=== PATIENT | female | born 1975 | race Caucasian/White ===

== ENCOUNTER 2016-07-05 10:25 | Inpatient (IN) | payer MEDICAID ==
[~2016-07-05] VITALS: Ht 165.1 cm; Wt 86.7 kg
[~2016-07-05 10:25] MED LIST: PRENAT PO
[2016-07-05] MEDS ORDERED: LACTATED RINGER'S 1,000 ML IV SCH (10:33)
[2016-07-05] MEDS ORDERED: CARBOPROST 250 MCG INJ IM PRN ×2 (11:00→16:30)
[2016-07-05] MEDS ORDERED: MISOPROSTOL 200 MCG TAB PR PRN ×2 (11:00→16:30)
[2016-07-05] MEDS ORDERED: OXYTOCIN 30 UNITS/LR 500 ML IV SCH (11:00)
[2016-07-05] MEDS ORDERED: METHYLERGONOVINE 0.2 MG INJ IM PRN ×2 (11:00→16:30)
[2016-07-05] MEDS ORDERED: OXYTOCIN 30 UNITS/LR 500 ML IV PRN ×2 (11:00→16:30)
[2016-07-05 11:02] VITALS: BP 117/61; PULSE 77; RESP 18; Ht 165.1 cm; Wt 86.7 kg
[2016-07-05] MEDS ORDERED: LACTATED RINGER'S 1,000 ML IV ONE (11:38)
[2016-07-05 11:49] LABS: ADD SCAN DIFF NO
[2016-07-05] MEDS ORDERED: FAMOTIDINE 20 MG INJ IV ONE (12:00)
[2016-07-05] MEDS ORDERED: CITRIC ACID/NA CITRATE 30 ML CUP PO ONE (12:00)
[2016-07-05 12:02] LABS: BASOPHILS % 0.2 % (0.0-2.0); EOSINOPHILS % 0.6 % (0.0-7.0); HEMATOCRIT 39.6 % (37.0-47.0); HEMOGLOBIN 13.1 g/dl (12.0-16.0); LYMPHOCYTES # 1.5 10^3/ul (0.8-2.9); LYMPHOCYTES % 23.5 % (15.0-51.0); MEAN CORPUSCULAR HGB CONC 33.1 g/dl (32.0-37.0); MEAN CORPUSCULAR VOLUME 96.8 fl (82.0-101.0); MEAN PLATELET VOLUME 11.7 fl (7.4-10.4); MONOCYTE # 0.4 10^3/ul (0.3-0.9); MONOCYTES % 5.5 % (0.0-11.0); NEUTROPHIL # 4.4 10^3/ul (1.6-7.5); NEUTROPHILS % 69.4 % (39.0-77.0); PLATELET COUNT 257 10^3/UL (140-415); RED BLOOD COUNT 4.09 10^6/ul (4.20-5.40); RED CELL DISTRIBUTION WIDTH 14.6 % (11.5-14.5); WHITE BLOOD COUNT 6.3 10^3/ul (4.8-10.8)
[2016-07-05 12:06] LABS: INR 0.9; PROTIME 12.1 Sec (12.2-14.2); PT RATIO 0.9
[2016-07-05 12:08] LABS: PARTIAL THROMBOPLASTIN TIME 27.3 Sec (25.0-35.0)
[2016-07-05] MEDS ORDERED: morphine SULFATE/PF (10 MG/10 ML) INJ ONE (12:39)
[2016-07-05] MEDS ORDERED: FENTAnyl 50 MCG/ML VIAL ONE (12:39)
[2016-07-05] MEDS ORDERED: PHENYLephrine (100 MCG/ML) 5ML SYG ONE (13:15)
--- NOTE | 2016-07-05 13:27 | PREOPHP ---
DATE OF ADMISSION: 07/05/2016 HISTORY OF PRESENT ILLNESS: A 40-year-old female 3, para 1-0-1-1, estimated delivery 2016 at 39+ weeks' gestation is admitted for repeat section and bilateral tubal ligation. PAST MEDICAL HISTORY: Unremarkable. PAST SURGICAL HISTORY: section, dilation and curettage. ALLERGIES: PENICILLIN. FAMILY HISTORY: Diabetes. PHYSICAL EXAMINATION: VITAL SIGNS: The patient is afebrile. Vital signs stable. HEAD, NECK AND CHEST: Within normal limits. ABDOMEN: Soft, nontender and gravid. EXTREMITIES: Within normal limits. NEUROLOGIC: Within normal limits. IMPRESSION: at 39 weeks and 3 days with previous section. The patient does not desire trial of labor after . The patient desires sterilization. PLAN: Repeat section and bilateral tubal ligation. Risks, benefits and alternatives of pr ocedure were explained to patient. Patient has been counseled about all of her contraceptive option s including all methods of sterilization. It was explained to patient is a chance of failure result ing in ectopic and/or intrauterine . After counseling, the patient said she unde rstood, and gave consent for the procedures. Dictated By: HA GARCIA/JOVANNY Conf#: [id number] DID#: [id number]
[2016-07-05] MEDS ORDERED: KETOROLAC 30 MG INJ IV PRN (13:30)
[2016-07-05] MEDS ORDERED: ONDANSETRON 4 MG INJ IV PRN (13:30)
[2016-07-05] MEDS ORDERED: HYDROmorphONE 1 MG/ML SYG IV PRN ×2 (13:30)
[2016-07-05] MEDS ORDERED: NALOXONE (0.4 MG/ML) INJ IV PRN (13:30)
[2016-07-05] MEDS ORDERED: ZOLPIDEM 5 MG TAB PO PRN (13:30)
[2016-07-05] MEDS ORDERED: DIPHENHYDRAMINE 50 MG INJ IV PRN (13:30)
[2016-07-05] MEDS ORDERED: ONDANSETRON 4 MG INJ ONE (14:15)
[2016-07-05] MEDS ORDERED: DEXAMETHASONE 4 MG/ML 1 ML INJ ONE (14:15)
--- NOTE | 2016-07-05 15:21 | OPR ---
DATE OF OPERATION: 07/05/2016 PREOPERATIVE DIAGNOSES: 1. at 39 weeks and 3 days with previous section. 2. Voluntary sterilization. POSTOPERATIVE DIAGNOSES: 1. at 39 weeks and 3 days with previous section. 2. Voluntary sterilization. OPERATION PERFORMED: Repeat low transverse section and bilateral tubal ligation, SURGEON: Ha Salazar MD SPRAGGER: Lisa Montiel MD ANESTHESIA: Spinal. ANESTHESIOLOGIST: Dr. Springer. PROCEDURE: The patient was taken to operating room and placed on the operating table. After succes sful spinal anesthesia was given, the patient was placed in supine position. The area was prepared and draped in the usual sterile fashion. Spinal anesthesia was tested and was satisfactory. Using a scalpel, Pfannenstiel incision was made about 2 fingerbreadths above the symphysis pubis. The inc ision was carried to the fascia. The fascia was incised and extended bilaterally with Herman scissors . Two Kochers were used to separate the fascia from the muscle. The muscle was dissected in midlin e down to the peritoneum. The peritoneum was secured with 2 Kellys and incised with Metzenbaum scis sors. Using a scalpel, a small transverse incision was made on the lower segment of the uterus. Up on entering the uterine cavity, bandage scissors were inserted to extend the incision bilaterally, c urved up. Baby was delivered from cephalic presentation. After suctioning clear of amniotic fluid, the baby was handed off to the red leader in attendance. Apgars were 9 and 9. The placenta was delivered without difficulty. The uterus was closed with #1 Monocryl continuous locked. After assuring hemostasis, both ovaries and tubes were inspected and all looked normal. The right f allopian tube was grasped with a Gus clamp. Using 0 plain suture ligature, a 5 cm segment of th e right fallopian tube was doubly ligated. Using Metzenbaum scissors, a portion of the right fallop chema tube above the ligated area was excised and sent to pathology. Same procedure was repeated on t he left fallopian tube. After assuring hemostasis, the peritoneal cavity was irrigated with warm saline. The peritoneum was closed with 2-0 Vicryl continuous. The fascia was closed with #1 Vicryl continuous in 2 segments. Subcutaneous tissue was reapproximated with 2-0 plain. The skin was closed with dimitry. ESTIMATED BLOOD LOSS: 700 mL. COMPLICATIONS: None. COUNTS: All counts were correct. Dictated By: HA GARCIA/JOVANNY Conf#: [id number] DID#: [id number]
[2016-07-05] MEDS: CEFAZOLIN 2 GM/50 ML (PMX) 50 ML IVPB SCH (15:44)
[2016-07-05] MEDS: LACTATED RINGER'S 1,000 ML IV SCH (16:15)
[2016-07-05] MEDS ORDERED: OXYCODONE/ACETAMINOPHEN (5/325) TAB PO PRN (16:30)
[2016-07-05] MEDS ORDERED: LANOLIN 7 GM TUBE TOP PRN (16:30)
[2016-07-05 17:35] VITALS: BP 125/66; PULSE 71; RESP 18
[2016-07-05] MEDS: OXYTOCIN 30 UNITS/LR 500 ML IV SCH ×3 (18:24→23:24)
[2016-07-05 19:50] VITALS: BP 121/62; PULSE 72; RESP 18
[2016-07-05] MEDS: SENNA/DOCUSATE NA (8.6MG/50MG) TAB PO SCH (21:00)
[2016-07-06] VITALS: BP 98/52; PULSE 72; RESP 18
[2016-07-06] MEDS: LACTATED RINGER'S 1,000 ML IV SCH (03:49)
[2016-07-06 04:30] VITALS: BP 113/55; PULSE 75; RESP 18
[2016-07-06 08:19] LABS: ADD SCAN DIFF NO
[2016-07-06 08:30] VITALS: BP 107/65; PULSE 83; RESP 14
[2016-07-06 08:41] LABS: BASOPHILS % 0.1 % (0.0-2.0); EOSINOPHILS % 0.2 % (0.0-7.0); HEMATOCRIT 31.2 % (37.0-47.0); HEMOGLOBIN 10.5 g/dl (12.0-16.0); LYMPHOCYTES # 2.3 10^3/ul (0.8-2.9); LYMPHOCYTES % 21.1 % (15.0-51.0); MEAN CORPUSCULAR HEMOGLOBIN 32.6 pg (29.0-33.0); MEAN CORPUSCULAR HGB CONC 33.7 g/dl (32.0-37.0); MEAN CORPUSCULAR VOLUME 96.9 fl (82.0-101.0); MONOCYTE # 0.8 10^3/ul (0.3-0.9); MONOCYTES % 7.4 % (0.0-11.0); NEUTROPHIL # 7.6 10^3/ul (1.6-7.5); NEUTROPHILS % 70.6 % (39.0-77.0); PLATELET COUNT 221 10^3/UL (140-415); RED BLOOD COUNT 3.22 10^6/ul (4.20-5.40); RED CELL DISTRIBUTION WIDTH 14.5 % (11.5-14.5); WHITE BLOOD COUNT 10.8 10^3/ul (4.8-10.8)
[2016-07-06] MEDS: SENNA/DOCUSATE NA (8.6MG/50MG) TAB PO SCH ×2 (09:14→20:44)
[2016-07-06 12:56] VITALS: BP 103/62; PULSE 79; RESP 18
[2016-07-06] MEDS: IBUPROFEN 800 MG TAB PO SCH ×2 (14:00→22:18)
[2016-07-06 19:45] VITALS: BP 104/51; PULSE 84; RESP 18
[2016-07-06] MEDS: OXYCODONE/ACETAMINOPHEN (5/325) TAB PO PRN (20:45)
--- NOTE | 2016-07-06 20:48 | PN ---
Date/Time of Note Date/Time of Note DATE: 07/06/16 TIME: 20:46 OB Subjective Subjective Subjective c/o incisional burning sensation passing small clots no flatus yet OB Objective Objective Objective vss afebrile abdomen soft wound dry lochia mod ext neg for tenderness HEENT: WNL Heart: Rhythm Normal Lungs: Clear, Equal Abdomen: WNL Extremities: Normal Reflexes: Normal OB Assessment/Plan Other Assessment: stable post rc/s #1 Other plan: as ordered MARLO SMITH MD July 06, 2016 20:48
[2016-07-07 04:20] VITALS: BP 98/54; PULSE 67; RESP 18
[2016-07-07] MEDS: IBUPROFEN 800 MG TAB PO SCH ×3 (05:41→22:04)
[2016-07-07 08:30] VITALS: BP 101/56; PULSE 67; RESP 18
[2016-07-07] MEDS: SENNA/DOCUSATE NA (8.6MG/50MG) TAB PO SCH ×2 (09:05→20:35)
[2016-07-07 16:36] VITALS: BP 122/59; PULSE 76; RESP 18
--- NOTE | 2016-07-07 19:36 | QN ---
Documentation Comment No complaint Afebrile VSS Abdomen soft POD #2 Stable Continue with present care. HA CHAVEZ MD July 07, 2016 19:36
[2016-07-07] MEDS: OXYCODONE/ACETAMINOPHEN (5/325) TAB PO PRN (20:34)
[2016-07-08 03:50] VITALS: BP 121/78; PULSE 78; RESP 18
[2016-07-08] MEDS: IBUPROFEN 800 MG TAB PO SCH ×3 (05:58→21:46)
[2016-07-08 08:45] VITALS: BP 116/64; PULSE 72; RESP 17
[2016-07-08] MEDS: SENNA/DOCUSATE NA (8.6MG/50MG) TAB PO SCH ×2 (09:00→21:46)
[2016-07-08] MEDS ORDERED: DIPHTH/TET/ACEL PERTUSS (ADULT) 0.5 ML VIAL IM* ONE (09:00)
--- NOTE | 2016-07-08 15:03 | QN ---
Documentation Comment No complaint Afebrile VSS Abdomen soft POD #3 Stable Continue with present care. HA CHAVEZ MD July 08, 2016 15:03
[2016-07-08 16:15] VITALS: BP 101/55; PULSE 83; RESP 16
[2016-07-08 20:25] VITALS: BP 122/60; PULSE 83; RESP 17
[2016-07-09 04:00] VITALS: BP 113/57; PULSE 74; RESP 18
[2016-07-09] MEDS: IBUPROFEN 800 MG TAB PO SCH ×2 (05:52→14:32)
[2016-07-09 08:00] VITALS: BP 138/81; PULSE 75; RESP 18
[2016-07-09] MEDS: SENNA/DOCUSATE NA (8.6MG/50MG) TAB PO SCH (08:48)
[2016-07-09 16:00] VITALS: BP 127/77; PULSE 80; RESP 18
--- NOTE | 2016-07-09 18:06 | DS ---
DATE OF ADMISSION: 07/05/2016 DATE OF DISCHARGE: 07/09/2016 ADMITTING DIAGNOSIS: at term with previous section. HISTORY: A 40-year-old female 3, para 1-0-1-1 at time of admission, para 2-0-1-2 at time of discharge, with term was admitted for repeat section. Also, patient desires russ ateral tubal ligation. On 07/05/2016, after obtaining informed consent, the patient underwent a rep eat low transverse section and bilateral tubal ligation. The patient's operation was uncom plicated. Postoperatively, the patient was given clear liquid diet, which was advanced to regular d iet, which she tolerated well. The patient discharged on postop day #4 after having had adequate bl adder and bowel function. CONDITION ON DISCHARGE: Stable. DIET: Regular. ACTIVITIES: Pelvic rest and no strenuous activities. MEDICATIONS: 1. Motrin as needed for pain. 2. Continue with vitamins, ferrous sulfate. Follow up in clinic in 1 week. FINAL DIAGNOSES: 1. Term , delivered by section. 2. Previous section. 3. Voluntary sterilization. 4. Mother with single liveborn. Dictated By: HA GARCIA/JOVANNY Conf#: [id number] DID#: [id number]
== END 2016-07-09 17:00 | disposition home or self-care (01) | DRG 766 ==
LOC: L-D 10:25 → PP1 17:38
PROVIDERS: ADMIT Obstetrics & Gynecology; ATTEND Obstetrics & Gynecology
PROC: 0UL70ZZ Occlusion of Bilateral Fallopian Tubes, Open Approach (ICD-10-PCS; 2016-07-05)
PROC: 10D00Z1 Extraction of Products of Conception, Low, Open Approach (ICD-10-PCS; principal; 2016-07-05 12:30)
PROC: 3E00X4Z Introduction of Serum, Toxoid and Vaccine into Skin and Mucous Membranes, External Approach (ICD-10-PCS; 2016-07-09)
DX: O34.211 Maternal care for low transverse scar from previous cesarean delivery (principal); Z23 Encounter for immunization; Z3A.39 39 weeks gestation of pregnancy; Z37.0 Single live birth; Z30.2 Encounter for sterilization
CPT/HCPCS: 85025; 85610; 85730; 86592; 86850; 86900; 86901; 88302; 90715; 94760; 99464; J0690; J1100; J1885; J2274; J2370; J2405; J2590; J3010; J7120